=== PATIENT | female | born 1970 | race Caucasian/White ===

== ENCOUNTER 2017-05-07 15:22 | Emergency (ER) | payer OTHER ==
[~2017-05-07] VITALS: Ht 165.1 cm; Wt 73.0 kg
[~2017-05-07 15:22] MED LIST: ATARAX,VISTARIL50 MG PO; AZITHROMYCIN250 MG PO; CYCLOBENZAPRINE10 MG PO; GABAPENTIN300 MG PO; LEXAPRO20 MG PO; LORAZEPAM0.5 MG PO; NOHOMEMEDS; XANAX0.5 MG; no home
[2017-05-07 16:46] LABS: AMPHETAMINE NEGATIVE (500 ng/mL); BARBITURATES NEGATIVE (200 ng/mL); BENZODIAZEPINES NEGATIVE (150 ng/mL); COCAINE NEGATIVE (150 ng/mL); INTERNAL CONTROLS VALID? YES; METHADONE NEGATIVE (200 ng/mL); METHAMPHETAMINE NEGATIVE (500 ng/mL); OPIATES (MORPHINE) NEGATIVE (100 ng/mL); OXYCODONE NEGATIVE (100 ng/mL); PHENCYCLIDINE NEGATIVE (25 ng/mL); PROPOXYPHENE NEGATIVE (300 ng/mL); THC CANNABINOIDS NEGATIVE (50 ng/mL); TRICYCLIC ANTIDEPRESSANTS NEGATIVE (300 ng/mL)
[2017-05-07 17:13] LABS: HEMATOCRIT 45.4 % (36.0-46.0); MCHC 33.9 G/DL (30.0-36.0); MCV 91.3 FL (83-99); MEAN PLAT.VOLUME 9.8 uM^3 (9.5-12.4); PLATELET COUNT 398 K/uL (156-360); RBC DIS.WIDTH-CV 12.8 % (11.8-14.6); RBC DIS.WIDTH-SD 42.9 % (39-53); RED BLOOD COUNT 4.97 M/uL (3.80-5.20); WHITE BLOOD COUNT 9.4 K/uL (4.1-10.2)
[2017-05-07 17:31] LABS: CHLORIDE 107 mEq/L (99-109); POTASSIUM 3.8 mEq/L (3.7-5.4); SODIUM 141 mEq/L (136-147)
[2017-05-07 17:32] LABS: GLUCOSE 95 mg/dL (70-99)
[2017-05-07 17:34] LABS: ANION GAP 10 MEQ/L (2-14)
[2017-05-07 17:36] LABS: GFR ESTIMATE (CALCULATED) > 59 mL/min/; SERUM ETHYL ALCOHOL 267 mg/dL
[2017-05-07 17:38] LABS: UREA NITROGEN (BUN) 7 mg/dL (9-23)
[2017-05-07 17:39] LABS: SALICYLATE < 5.0 MG/DL (15-30)
[2017-05-08 01:59] VITALS: BP 116/64
== END 2017-05-08 02:26 | disposition home or self-care (01) ==
LOC: EME 15:22
PROVIDERS: Emergency Medicine
DX: F10.229 Alcohol dependence with intoxication, unspecified (principal); Y90.8 Blood alcohol level of 240 mg/100 ml or more; R45.851 Suicidal ideations; F17.200 Nicotine dependence, unspecified, uncomplicated
CPT/HCPCS: 80048; 85027; 90837; 99281; 99285; G0480; J1630; J2060